=== PATIENT | male | born 2000 | race Caucasian/White ===

== ENCOUNTER 2024-01-21 22:41 | Emergency (ER) | payer OTHER, MEDICAID, SELFPAY ==
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
[2024-01-21 22:44] VITALS: BP 126/70; PULSE 92; O2SAT 99
[2024-01-21 22:48] VITALS: BP 132/82; PULSE 95; RESP 18; O2SAT 98
[2024-01-21 22:50] VITALS: BP 132/82; PULSE 98; RESP 16; O2SAT 98; BMI 29.4
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
[2024-01-21] MEDS: oxyCODONE HCl Immed Release 5 MG TABLET 10 MG PO (23:16)
--- NOTE | 2024-01-21 23:36 | MHC.EDTECH ---
Per md request bárbara wrap applied to right knee of patient
[2024-01-21 23:43] VITALS: BP 137/83; PULSE 97; RESP 18; TEMP 36.6; O2SAT 98
== END 2024-01-21 23:53 | disposition home or self-care (01) ==
PROVIDERS: Emergency Provider Internal Medicine
DX: S70.01XA Contusion of right hip, initial encounter (principal); V03.00XA Pedestrian on foot injured in collision with car, pick-up truck or van in nontraffic accident, initial encounter; M25.561 Pain in right knee; Y93.01 Activity, walking, marching and hiking; Y92.414 Local residential or business street as the place of occurrence of the external cause; Y99.9 Unspecified external cause status
CPT/HCPCS: 73502; 73562; 99283; 99284

== ENCOUNTER 2024-07-16 09:36 | Outpatient (REF) | payer OTHER, MEDICAID, SELFPAY ==
[2024-07-16 11:37] LABS: Hematocrit 43.4 % (42.0-52.0); Hemoglobin 14.9 g/dl (14.0-18.0); Mean Corpuscular HGB Conc 34.3 g/dl (31.0-36.0); Mean Corpuscular Hemoglobin 30.2 pg (27.0-33.0); Mean Platelet Volume 11.3 fL (9.4-12.4); Platelet Count 251 X10*3/uL (160-400); Red Blood Count 4.93 X10*6/uL (4.60-5.80); Red Cell Distribution Width 11.9 % (11.0-16.0); White Blood Count 6.1 X10*3/uL (4.8-10.8)
[2024-07-16 11:44] LABS: Estimated Average Glucose 97 mg/dL; Hemoglobin A1C 120.2338 umol/L; Total Hemoglobin (HGBA1C) 3876.6801 umol/L
[2024-07-16 12:01] LABS: Alanine Aminotransferase 26 U/L (0-40); Alkaline Phosphatase 57 U/L (39-117); Anion Gap 9 (12-20); Aspartate Amino Transferase 26 U/L (5-37); Bilirubin Total 0.7 mg/dL (0.0-1.0); Blood Urea Nitrogen 15 mg/dL (9-16); Calcium 9.4 mg/dL (8.4-10.2); Carbon Dioxide 26 mmol/L (22-29); Chloride 108 mmol/L (96-108); Estimated Glomerular Filt Rate > 60; Glucose Random 95 mg/dL (60-115); Potassium 3.8 mmol/L (3.3-5.1); Sodium 139 mmol/L (135-145)
[2024-07-16 12:16] LABS: HBS Num1 22.76 mIU/mL (0-7.99); HBc Num1 0.17 S/CO (0.00-0.79); HBsAGNum1 0.36 S/CO (0.00-0.99); HIV AB/AG Nonreactive (Nonreactive); HIV Num 1 0.06 S/CO (0.00-0.99); Hepatitis B Core Antibody Nonreactive (Nonreactive); Hepatitis B Surface Antigen Negative (Negative); ~HepC Num1 0.13 S/CO (0.00-0.79); ~Hepatitis B Surface Antibody REACTIVE (Nonreactive); ~Hepatitis C Antibody Nonreactive (Nonreactive)
[2024-07-16 12:20] LABS: Syphilis Screen Nonreactive (Nonreactive)
[2024-07-16 12:29] LABS: TSH reflex Free T4 2.93 uIU/mL (0.32-4.0)
[2024-07-16 13:41] LABS: CT PCR NOT DETECTED (Not Detect.); NG PCR NOT DETECTED (Not Detect.)
== END 2024-07-16 09:37 | disposition home or self-care (01) ==
LOC: HO.HHCL 09:36
PROVIDERS: Visit Provider Student in an Organized Health Care Education/Training Program
DX: Z00.00 Encounter for general adult medical examination without abnormal findings (principal); Z13.1 Encounter for screening for diabetes mellitus
CPT/HCPCS: 36415; 80053; 83036; 84443; 85027; 86704; 86706; 86780; 86803; 87340; 87389; 87491; 87591